=== PATIENT | female | born 1945 | race Caucasian/White ===

== ENCOUNTER 2020-11-18 01:44 | Inpatient (IN) | payer OTHER ==
[2020-11-18] MEDS ORDERED: ONDANSETRON 4 MG/2 ML VIAL IVPUSH ONE (02:17)
[2020-11-18] MEDS ORDERED: SODIUM CHLORIDE 0.9% 500 ML INFUS.BAG IV ONE (02:18)
[2020-11-18 02:42] LABS: BASO % 0.2 % (0-2.0); HEMATOCRIT 32.7 % (32.4-45.2); HEMOGLOBIN 10.7 GM/dL (10.7-15.3); LYMPH % 24.1 % (8-40); MCH 31.2 pg (25.7-33.7); MCHC 32.8 g/dl (32.0-36.0); MEAN PLT VOLUME 8.8 fl (7.5-11.1); MONO % 4.7 % (3.8-10.2); PLATELET COUNT 397 K/MM3 (134-434); RBC 3.44 M/mm3 (3.60-5.2); RDW 14.7 % (11.6-15.6); WHITE BLOOD COUNT 11.3 K/mm3 (4.0-10.0)
[2020-11-18 02:52] LABS: INR 1.22 (0.83-1.09); PROTHROMBIN TIME (PATIENT) 14.7 SEC (9.7-13.0)
[2020-11-18 02:55] LABS: ACTIVATED PTT 25.7 SECONDS (25.2-36.5)
[2020-11-18 02:56] LABS: POTASSIUM 3.8 mmol/L (3.5-5.1)
[2020-11-18 02:58] LABS: CALCIUM 7.9 mg/dL (8.5-10.1)
[2020-11-18 02:59] LABS: BLOOD UREA NITROGEN 17.2 mg/dL (7-18); MAGNESIUM 1.6 mg/dL (1.8-2.4)
[2020-11-18 03:02] LABS: CREATININE 0.6 mg/dL (0.55-1.3)
[2020-11-18 03:03] LABS: BILIRUBIN,TOTAL 0.3 mg/dL (0.2-1)
[2020-11-18] MEDS ORDERED: LACTATED RINGERS SOLUTION 1000 ML INFUS.BAG IV ONE ×2 (03:19→06:29)
[2020-11-18] MEDS ORDERED: ASPIRIN 81 MG CHEWABLE TABLETS ONE (03:29)
[2020-11-18] MEDS ORDERED: ASPIRIN 300 MG SUPP.RECT PR ONE (03:36)
[2020-11-18] MEDS: ASPIRIN 81 MG CHEWABLE TABLETS PO ONE ×2 (03:36→03:58)
[2020-11-18] MEDS ORDERED: ASPIRIN 300 MG SUPP.RECT RC ONE ×2 (03:47→04:20)
[2020-11-18 06:32] LABS: URINE APPEARANCE CLEAR; URINE BILIRUBIN NEGATIVE (NEGATIVE); URINE COLOR YELLOW; URINE GLUCOSE (UA) NEGATIVE (NEGATIVE); URINE KETONE NEGATIVE (NEGATIVE)
[2020-11-18 06:33] LABS: URINE LEUK ESTERASE NEGATIVE (NEGATIVE); URINE NITRITE NEGATIVE (NEGATIVE); URINE PROTEIN TRACE (NEGATIVE); URINE UROBILINOGEN 0.2 mg/dL (0.2-1.0)
[2020-11-18 06:36] LABS: URINE RBC 23 /uL (0-23.9); URINE WBC 36 /uL (0-25.8)
[2020-11-18 06:39] LABS: EPI CELLS 21 /uL (0-25.1); HYALINE CASTS 5 /uL (0-3.1); URINE BACTERIA 85 /uL (0-1359)
[2020-11-18] MEDS ORDERED: MAGNESIUM 1GM/D5W - 2 GM/200 ML IVPB IVPB ONE (07:42)
[2020-11-18] MEDS ORDERED: NITROGLYCERIN 2% OINTMENT - 1GM PACKET TD ONE ×2 (08:00→09:21)
[2020-11-18] MEDS ORDERED: FUROSEMIDE 40 MG/4 ML INJECTABLE VIAL IVPUSH ONE (08:00)
[2020-11-18] MEDS ORDERED: FUROSEMIDE 40 MG/4 ML INJECTABLE VIAL ONE (09:22)
[2020-11-18] MEDS ORDERED: HEPARIN NA (PORCINE) 5,000 UNITS/ML 1ML VIAL SQ SCH (10:00)
[2020-11-18] MEDS ORDERED: HEPARIN NA (PORCINE) 5,000 UNITS/ML 1ML VIAL ONE (10:06)
[2020-11-18] MEDS ORDERED: DOXYCYCLINE INJECTION 100 MG in DEXTROSE 5%-WATER - 100 ML IVPB SCH (12:30)
[2020-11-18] MEDS ORDERED: DOXYCYCLINE HYCLATE 100 MG VIAL ONE ×2 (12:59→23:53)
[2020-11-18] MEDS ORDERED: ENOXAPARIN NA (PORCINE) 80 MG/0.8 ML DISP.SYRIN SQ ONE (13:00)
[2020-11-18] MEDS ORDERED: CEFTRIAXONE 1 GM/50 ML BAG ONE (13:00)
[2020-11-18] MEDS: CEFTRIAXONE 1 GM in DEXTROSE 5%-WATER - 50 ML IVPB SCH (13:13)
[2020-11-18] MEDS: ENOXAPARIN NA (PORCINE) 80 MG/0.8 ML DISP.SYRIN SQ SCH ×2 (13:13→22:40)
[2020-11-18] MEDS ORDERED: DOXYCYCLINE INJECTION 100 MG in DEXTROSE 5%-WATER 100 ML IVPB SCH ×2 (22:11→23:45)
[2020-11-18] MEDS: MEMANTINE HCL 10 MG TABLET (FP) PO SCH (22:40)
[2020-11-18] MEDS: DONEPEZIL HCL 10 MG TABLET (FP) PO SCH (22:41)
[2020-11-18] MEDS ORDERED: DEXTROSE 5%-WATER 100 ML IVPB ONE (23:53)
[2020-11-19 07:11] LABS: BASO % 0.3 % (0-2.0); HEMATOCRIT 32.3 % (32.4-45.2); HEMOGLOBIN 11.1 GM/dL (10.7-15.3); LYMPH % 29.1 % (8-40); MCH 31.7 pg (25.7-33.7); MCHC 34.2 g/dl (32.0-36.0); MEAN CELL VOLUME 92.7 fl (80-96); MEAN PLT VOLUME 8.3 fl (7.5-11.1); MONO % 5.1 % (3.8-10.2); NEUT % 64.5 % (42.8-82.8); PLATELET COUNT 370 K/MM3 (134-434); RBC 3.48 M/mm3 (3.60-5.2); RDW 14.9 % (11.6-15.6); WHITE BLOOD COUNT 7.4 K/mm3 (4.0-10.0)
[2020-11-19 07:37] LABS: POTASSIUM 3.7 mmol/L (3.5-5.1)
[2020-11-19 07:41] LABS: ALBUMIN 2.8 g/dl (3.4-5.0); BLOOD UREA NITROGEN 14.9 mg/dL (7-18); MAGNESIUM 2.1 mg/dL (1.8-2.4)
[2020-11-19 07:44] LABS: CREATININE 0.5 mg/dL (0.55-1.3); PHOSPHOROUS 2.6 mg/dL (2.5-4.9)
[2020-11-19 07:46] LABS: BILIRUBIN,TOTAL 0.5 mg/dL (0.2-1); TOT PROT 5.8 g/dl (6.4-8.2)
[2020-11-19] MEDS ORDERED: DOXYCYCLINE HYCLATE 100 MG VIAL ONE (08:59)
[2020-11-19] MEDS ORDERED: DEXTROSE 5%-WATER - 50 ML IVPB ONE (09:00)
[2020-11-19] MEDS ORDERED: DEXTROSE 5%-WATER 100 ML IVPB ONE (09:00)
[2020-11-19] MEDS ORDERED: cefTRIAXone SODIUM 1 GM VIAL ONE (09:00)
[2020-11-19] MEDS: MEMANTINE HCL 10 MG TABLET (FP) PO SCH ×2 (09:26→22:13)
[2020-11-19] MEDS: ENOXAPARIN NA (PORCINE) 80 MG/0.8 ML DISP.SYRIN SQ SCH ×2 (09:26→22:13)
[2020-11-19] MEDS: CEFTRIAXONE 1 GM in DEXTROSE 5%-WATER - 50 ML IVPB SCH (09:27)
[2020-11-19] MEDS: DONEPEZIL HCL 10 MG TABLET (FP) PO SCH (22:13)
[2020-11-19] MEDS: MIRTAZAPINE 15 MG TABLET (FP) PO SCH (22:14)
[2020-11-20] MEDS ORDERED: cefTRIAXone SODIUM 1 GM VIAL ONE (08:59)
[2020-11-20] MEDS ORDERED: DEXTROSE 5%-WATER - 50 ML IVPB ONE (08:59)
[2020-11-20] MEDS: MEMANTINE HCL 10 MG TABLET (FP) PO SCH ×2 (10:27→21:04)
[2020-11-20] MEDS: CEFTRIAXONE 1 GM in DEXTROSE 5%-WATER - 50 ML IVPB SCH (10:27)
[2020-11-20] MEDS: ENOXAPARIN NA (PORCINE) 80 MG/0.8 ML DISP.SYRIN SQ SCH ×2 (10:27→21:03)
[2020-11-20 14:20] LABS: BASO % 2.1 % (0-2.0); EOS % 3.3 % (0-4.5); HEMATOCRIT 36.3 % (32.4-45.2); HEMOGLOBIN 12.2 GM/dL (10.7-15.3); LYMPH % 38.3 % (8-40); MCH 31.5 pg (25.7-33.7); MCHC 33.6 g/dl (32.0-36.0); MEAN CELL VOLUME 93.7 fl (80-96); MEAN PLT VOLUME 8.4 fl (7.5-11.1); MONO % 7.8 % (3.8-10.2); NEUT % 48.5 % (42.8-82.8); PLATELET COUNT 380 K/MM3 (134-434); RBC 3.87 M/mm3 (3.60-5.2); RDW 14.7 % (11.6-15.6); WHITE BLOOD COUNT 5.6 K/mm3 (4.0-10.0)
[2020-11-20 14:38] LABS: POTASSIUM 3.3 mmol/L (3.5-5.1)
[2020-11-20 14:42] LABS: ALBUMIN 3.1 g/dl (3.4-5.0); BLOOD UREA NITROGEN 8.7 mg/dL (7-18); CALCIUM 9.2 mg/dL (8.5-10.1); MAGNESIUM 2.1 mg/dL (1.8-2.4)
[2020-11-20 14:45] LABS: CREATININE 0.6 mg/dL (0.55-1.3)
[2020-11-20 14:46] LABS: BILIRUBIN,TOTAL 0.4 mg/dL (0.2-1); TOT PROT 6.6 g/dl (6.4-8.2)
[2020-11-20] MEDS ORDERED: METOPROLOL TARTRATE 25 MG TABLET (FP) PO SCH (15:00)
[2020-11-20] MEDS ORDERED: METOPROLOL TARTRATE 25 MG TABLET (FP) PO ONE (15:15)
[2020-11-20 15:28] LABS: ANISOCYTOSIS 1+
[2020-11-20] MEDS: DONEPEZIL HCL 10 MG TABLET (FP) PO SCH (21:03)
[2020-11-20] MEDS: MIRTAZAPINE 15 MG TABLET (FP) PO SCH (21:03)
[2020-11-20] MEDS: METOPROLOL TARTRATE 25 MG TABLET (FP) PO SCH (21:03)
[2020-11-21 07:18] LABS: BASO % 0.8 % (0-2.0); EOS % 2.9 % (0-4.5); HEMATOCRIT 35.4 % (32.4-45.2); HEMOGLOBIN 11.9 GM/dL (10.7-15.3); LYMPH % 38.9 % (8-40); MCH 31.4 pg (25.7-33.7); MCHC 33.7 g/dl (32.0-36.0); MEAN CELL VOLUME 93.2 fl (80-96); MEAN PLT VOLUME 8.4 fl (7.5-11.1); MONO % 7.1 % (3.8-10.2); NEUT % 50.3 % (42.8-82.8); PLATELET COUNT 385 K/MM3 (134-434); RDW 14.7 % (11.6-15.6); WHITE BLOOD COUNT 5.8 K/mm3 (4.0-10.0)
[2020-11-21 07:36] LABS: POTASSIUM 3.6 mmol/L (3.5-5.1)
[2020-11-21 07:43] LABS: MAGNESIUM 2.1 mg/dL (1.8-2.4)
[2020-11-21 07:46] LABS: CREATININE 0.5 mg/dL (0.55-1.3)
[2020-11-21 07:47] LABS: BILIRUBIN,TOTAL 0.4 mg/dL (0.2-1); TOT PROT 6.2 g/dl (6.4-8.2)
[2020-11-21] MEDS ORDERED: cefTRIAXone SODIUM 1 GM VIAL ONE (09:19)
[2020-11-21] MEDS ORDERED: DEXTROSE 5%-WATER - 50 ML IVPB ONE (09:19)
[2020-11-21] MEDS: ENOXAPARIN NA (PORCINE) 80 MG/0.8 ML DISP.SYRIN SQ SCH ×2 (09:58→21:51)
[2020-11-21] MEDS: METOPROLOL TARTRATE 25 MG TABLET (FP) PO SCH ×2 (09:58→21:51)
[2020-11-21] MEDS: CEFTRIAXONE 1 GM in DEXTROSE 5%-WATER - 50 ML IVPB SCH (09:59)
[2020-11-21] MEDS: MEMANTINE HCL 10 MG TABLET (FP) PO SCH ×2 (09:59→21:51)
[2020-11-21 11:52] LABS: LACTIC ACID 2.1 mmol/L (0.4-2.0)
[2020-11-21 15:59] VITALS: BMI 18.8
[2020-11-21] MEDS: DONEPEZIL HCL 10 MG TABLET (FP) PO SCH (21:51)
[2020-11-21] MEDS: MIRTAZAPINE 15 MG TABLET (FP) PO SCH (21:51)
[2020-11-22 08:12] LABS: BASO % 0.8 % (0-2.0); EOS % 3.9 % (0-4.5); HEMOGLOBIN 11.9 GM/dL (10.7-15.3); LYMPH % 38.4 % (8-40); MCH 31.9 pg (25.7-33.7); MCHC 34.1 g/dl (32.0-36.0); MEAN CELL VOLUME 93.7 fl (80-96); MEAN PLT VOLUME 8.3 fl (7.5-11.1); MONO % 6.7 % (3.8-10.2); NEUT % 50.2 % (42.8-82.8); PLATELET COUNT 404 K/MM3 (134-434); RBC 3.73 M/mm3 (3.60-5.2); RDW 14.8 % (11.6-15.6); WHITE BLOOD COUNT 5.9 K/mm3 (4.0-10.0)
[2020-11-22 08:36] LABS: POTASSIUM 3.5 mmol/L (3.5-5.1)
[2020-11-22 08:45] LABS: CALCIUM 8.6 mg/dL (8.5-10.1)
[2020-11-22 08:46] LABS: ALBUMIN 2.9 g/dl (3.4-5.0); MAGNESIUM 2.1 mg/dL (1.8-2.4)
[2020-11-22 08:49] LABS: CREATININE 0.5 mg/dL (0.55-1.3)
[2020-11-22 08:50] LABS: BILIRUBIN,TOTAL 0.4 mg/dL (0.2-1)
[2020-11-22 08:51] LABS: TOT PROT 6.3 g/dl (6.4-8.2)
[2020-11-22] MEDS ORDERED: DEXTROSE 5%-WATER - 50 ML IVPB ONE (09:19)
[2020-11-22] MEDS ORDERED: cefTRIAXone SODIUM 1 GM VIAL ONE (09:19)
[2020-11-22] MEDS ORDERED: ASPIRIN COATED 81 MG TABLET.EC PO SCH (10:00)
[2020-11-22] MEDS: METOPROLOL TARTRATE 25 MG TABLET (FP) PO SCH (11:06)
[2020-11-22] MEDS: MEMANTINE HCL 10 MG TABLET (FP) PO SCH (11:07)
[2020-11-22] MEDS: ENOXAPARIN NA (PORCINE) 80 MG/0.8 ML DISP.SYRIN SQ SCH (11:07)
[2020-11-22] MEDS: CEFTRIAXONE 1 GM in DEXTROSE 5%-WATER - 50 ML IVPB SCH (11:07)
[2020-11-22] MEDS ORDERED: LIDOCAINE 5% TOPICAL PATCH TP ONE (12:30)
[2020-11-22 15:43] VITALS: BP 118/69; PULSE 70; TEMP 98
[2020-11-22] MEDS ORDERED: ATORVASTATIN CA 20 MG TABLET (FP) PO SCH (22:00)
[2020-11-22] MEDS ORDERED: LIDOCAINE PATCH REMOVAL MC SCH (22:00)
[2020-11-23] MEDS ORDERED: LISINOPRIL 5 MG TABLET PO SCH (10:00)
== END 2020-11-22 18:06 | disposition home or self-care (01) | DRG 291 ==
LOC: JER 01:44 → JERBED 04:06 → J4W 20:39
PROVIDERS: ADMIT Internal Medicine; ATTEND Nurse Practitioner Family
DX: I11.0 Hypertensive heart disease with heart failure (principal); J18.9 Pneumonia, unspecified organism; J81.0 Acute pulmonary edema; I50.31 Acute diastolic (congestive) heart failure; E87.2 Acidosis; J98.11 Atelectasis; I24.8 Other forms of acute ischemic heart disease; I95.9 Hypotension, unspecified; E87.6 Hypokalemia; D72.829 Elevated white blood cell count, unspecified; E83.51 Hypocalcemia; I25.119 Atherosclerotic heart disease of native coronary artery with unspecified angina pectoris; R07.9 Chest pain, unspecified; E78.5 Hyperlipidemia, unspecified
CPT/HCPCS: 36415; 71045-TC-FY; 71250-TC; 74177-TC; 74181-TC; 80053; 80061; 81003; 82272; 82550; 83036; 83605; 83690; 83721; 83735; 83880; 84100; 84439; 84443; 84484; 85025; 85610; 85730; 86850; 86900; 86901; 87040; 87086; 87899; 93005; 93010; 93306-TC; 94660; 99285-25; C9803; J1644; Q9967; U0003